=== PATIENT | female | born 1970 | race Caucasian/White ===

== ENCOUNTER → 2023-03-20 | Outpatient (CLI) | payer OTHER ==
[~2023-03-20] MED LIST: CLARITIN 1010 MG/TAB PO; PERCOCET 325 MG1 TA2 PO; PRILOSEC 20MG20 MG PO; SINGULAIR 110 MG/TAB PO; XANAX .25M0.25 MG/TA PO; ZOLOFT 25MG25 MG PO
== END ==
LOC: COL.RAD 10:48
DX: E04.1 Nontoxic single thyroid nodule (principal); E07.89 Other specified disorders of thyroid